=== PATIENT | female | born 1980 | race Hispanic/Latino ===

== ENCOUNTER 2018-01-12 10:27 | Day surgery (SDC) | payer OTHER ==
[2018-01-03 09:28] VITALS: BMI 24.1
[2018-01-12] MEDS ORDERED: Propofol 10 mg/ml Inj (20 ML) ONE (11:54)
[2018-01-12] MEDS ORDERED: Sodium Chloride 0.9% 1,000 ML IV SCH (12:00)
[2018-01-12 12:51] VITALS: O2SAT 99
[2018-01-12 13:14] VITALS: BP 125/72; PULSE 64; RESP 16; TEMP 98.2
== END 2018-01-12 13:29 | disposition home or self-care (01) ==
LOC: ENDO 10:27
PROVIDERS: ATTEND Internal Medicine
DX: K29.50 Unspecified chronic gastritis without bleeding (principal); K44.9 Diaphragmatic hernia without obstruction or gangrene; F17.210 Nicotine dependence, cigarettes, uncomplicated; R19.7 Diarrhea, unspecified; R10.9 Unspecified abdominal pain; Z83.3 Family history of diabetes mellitus; Z82.49 Family history of ischemic heart disease and other diseases of the circulatory system; Z80.3 Family history of malignant neoplasm of breast; Z80.1 Family history of malignant neoplasm of trachea, bronchus and lung; Z80.0 Family history of malignant neoplasm of digestive organs
CPT/HCPCS: 43239; 84703; 88305; 88342; J2001; J2704; J7030; J7040